=== PATIENT | male | born 1965 | race Two or more races ===

== ENCOUNTER → 2016-09-12 | Outpatient (CLI) | payer BC ==
[2016-09-12 17:52] LABS: ABSOLUTE BASOPHILS # (AUTO) 0.1 10^3/uL (0.0-0.2); ABSOLUTE LYMPHOCYTES (AUTO) 2.2 10^3/uL (0.5-4.7); ABSOLUTE MONOCYTES (AUTO) 0.4 10^3/uL (0.1-1.4); ABSOLUTE NEUT (AUTO) 5.2 10^3/uL (1.7-8.2); BASOPHILS % (AUTO) 0.7 % (0-2); EOSINOPHILS % (AUTO) 0.6 % (0-6); HEMATOCRIT 40.5 % (37.9-51.0); HEMOGLOBIN 13.6 g/dL (13.5-17.0); HGB HCT DIFFERENCE 0.3; LYMPHOCYTES % (AUTO) 27.4 % (13-45); MEAN CORPUSCULAR HEMOGLOBIN 31.9 pg (27.0-33.4); MEAN CORPUSCULAR HGB CONC 33.5 g/dL (32.0-36.0); MEAN CORPUSCULAR VOLUME 95 fl (80-97); MONOCYTES % (AUTO) 5.1 % (3-13); RED BLOOD COUNT 4.25 10^6/uL (4.35-5.55); RED CELL DISTRIBUTION WIDTH 13.1 % (11.5-14.0); SEGMENTED NEUTROPHILS % (AUTO) 66.2 % (42-78); WHITE BLOOD COUNT 7.9 10^3/uL (4.0-10.5)
[2016-09-12 18:33] LABS: PROTHROMBIN TIME 12.9 SEC (11.4-15.4)
[2016-09-12 18:34] LABS: PARTIAL THROMBOPLASTIN TIME 28.6 SEC (23.5-35.8)
[2016-09-12 18:46] LABS: APPEARANCE,URINE CLEAR; BILIRUBIN,URINE NEGATIVE (NEGATIVE); GLUCOSE, URINE NEGATIVE (NEGATIVE); KETONES,URINE NEGATIVE (NEGATIVE); LEUKOCYTE ESTERASE,URINE NEGATIVE (NEGATIVE); NITRITE,URINE NEGATIVE (NEGATIVE); PROTEIN,URINE NEGATIVE (NEGATIVE); URINE SPECIFIC GRAVITY 1.017; UROBILINOGEN,URINE NEGATIVE mg/dL (<2.0)
== END ==
LOC: OD 16:05
PROVIDERS: ATTEND Pain Medicine Interventional Pain Medicine
DX: G89.4 Chronic pain syndrome (principal)
CPT/HCPCS: 36415; 81001; 85025; 85610; 85730

== ENCOUNTER 2016-11-14 05:43 | Day surgery (SDC) | payer BC ==
[2016-11-07 09:36] LABS: HEMATOCRIT 45.1 % (37.9-51.0); HEMOGLOBIN 14.9 g/dL (13.5-17.0); HGB HCT DIFFERENCE -0.4; MEAN CORPUSCULAR HEMOGLOBIN 31.5 pg (27.0-33.4); MEAN CORPUSCULAR VOLUME 95 fl (80-97); RED BLOOD COUNT 4.72 10^6/uL (4.35-5.55); RED CELL DISTRIBUTION WIDTH 13.7 % (11.5-14.0); WHITE BLOOD COUNT 4.7 10^3/uL (4.0-10.5)
[2016-11-07 09:45] LABS: PARTIAL THROMBOPLASTIN TIME 28.1 SEC (23.5-35.8); PROTHROMBIN TIME 12.5 SEC (11.4-15.4)
[2016-11-07 09:46] LABS: AMORPHOUS SEDIMENT,URINE TRACE /HPF; APPEARANCE,URINE CLOUDY; BILIRUBIN,URINE NEGATIVE (NEGATIVE); GLUCOSE, URINE NEGATIVE (NEGATIVE); KETONES,URINE NEGATIVE (NEGATIVE); LEUKOCYTE ESTERASE,URINE NEGATIVE (NEGATIVE); NITRITE,URINE NEGATIVE (NEGATIVE); PROTEIN,URINE NEGATIVE (NEGATIVE); URINE SPECIFIC GRAVITY 1.024; UROBILINOGEN,URINE NEGATIVE mg/dL (<2.0)
--- NOTE | 2016-11-07 10:05 | RADIOLOGY REPORT (SQ) ---
EXAM DESCRIPTION: CHEST PA/LATERAL COMPLETED DATE/TIME: 11/07/2016 9:45 am REASON FOR STUDY: PRE OP COMPARISON: None. EXAM PARAMETERS: NUMBER OF VIEWS: two views TECHNIQUE: Digital Frontal and Lateral radiographic views of the chest acquired. RADIATION DOSE: NA LIMITATIONS: none FINDINGS: LUNGS AND PLEURA: Probable nipple shadow on the left. No opacities, masses or pneumothora x. No pleural effusion. MEDIASTINUM AND HILAR STRUCTURES: No masses or contour abnormalities. HEART AND VASCULAR STRUCTURES: Heart normal size. No evidence for failure. BONES: No acute findings. HARDWARE: None in the chest. OTHER: No other significant finding. IMPRESSION: PROBABLE NIPPLE SHADOW ON THE LEFT. REPEAT STUDY WITH NIPPLE MARKERS RECOMMENDED FOR CO NFIRMATION. OTHERWISE NO SIGNIFICANT RADIOGRAPHIC FINDING IN THE CHEST. TECHNICAL DOCUMENTATION: JOB ID: [id number] [employer]- All Rights Reserved
--- NOTE | 2016-11-07 19:15 | EKG REPORT ---
SEVERITY:- NORMAL ECG - SINUS RHYTHM : Confirmed by: Ap Nelson MD 07-Nov-2016 19:14:07
[~2016-11-14 05:43] MED LIST: CEFAZOLIN 1 GM/D5W RTU 1 GM/50 ML RTUPB IV PRN; LACTATED RINGERS 1000 ML IV PRN; LIDOCAINE 0.5% INJ-PF (5 MG/ML) 50 ML SDV SUBCUT PRN
[2016-11-14] MEDS ORDERED: KETAMINE HCL INJ 500 MG/10 ML VIAL ONE (07:38)
[2016-11-14] MEDS ORDERED: MIDAZOLAM 2 MG/2 ML INJ ONE (07:39)
[2016-11-14] MEDS ORDERED: PROPOFOL INJ 200 MG/20 ML VIAL IV ONE (07:39)
[2016-11-14] MEDS ORDERED: DEXMEDETOMIDINE INJ 80 MCG/20 ML VIAL IV ONE (07:39)
[2016-11-14] MEDS ORDERED: IBUPROFEN INJ 800 MG/8 ML VIAL IV ONE (07:40)
[2016-11-14] MEDS ORDERED: MORPHINE SULFATE 10 MG/ML INJ ONE (07:40)
[2016-11-14] MEDS ORDERED: BUPIVACAINE HCL 0.25% /EPINEPHRINE INJ/PF 30 ML SDV ONE ×2 (07:46→08:39)
[2016-11-14] MEDS ORDERED: SODIUM BICARBONATE 8.4% INJ 50 MEQ/50 ML DISP.SYRIN ONE (07:46)
[2016-11-14] MEDS ORDERED: LIDOCAINE 1% INJ-PF (10 MG/ML) 30 ML SDV ONE ×2 (07:46→08:39)
[2016-11-14] MEDS ORDERED: DIPHENHYDRAMINE HCL 50 MG/ML VIAL IV PRN (09:01)
[2016-11-14] MEDS ORDERED: OXYCODONE-ACETAMINOPHEN 5-325 MG TABLET PO PRN ×4 (09:01→10:10)
[2016-11-14] MEDS ORDERED: PROMETHAZINE HCL INJ 25 MG/1 ML VIAL IV PRN ×2 (09:01)
[2016-11-14] MEDS ORDERED: MEPERIDINE HCL/PF INJ 25 MG/1 ML DISP.SYRIN IV PRN (09:01)
[2016-11-14] MEDS ORDERED: MORPHINE SULFATE 10 MG/ML INJ IV PRN (09:01)
[2016-11-14] MEDS ORDERED: FENTANYL CITRATE INJ/PF 100 MCG/2 ML AMPUL IV PRN ×3 (09:01)
[2016-11-14] MEDS ORDERED: CEFAZOLIN INJ 1 GM VIAL ONE (09:54)
--- NOTE | 2016-11-14 11:24 | OPERATIVE REPORT E ---
Operative Report NAME: JAXSON HANSEN : 1965 AGE: 51Y DATE OF SURGERY: 11/14/2016 ROOM: PRE-PROCEDURAL DIAGNOSES: Lumbar radiculopathy and chronic pain. POSTOPERATIVE DIAGNOSES: Lumbar radiculopathy and chronic pain. PROCEDURES PERFORMED: Implantation of dual Octrode spinal cord stimulator, electrodes, and implantable pulse generator from [employer]. PRIMARY SURGEON: MANDY ANGULO M.D. ASSISTING: Dr. Bernardo Atkinson PERIOPERATIVE ANTIBIOTICS: Ancef 1 g given prior to incision. INTRAVENOUS FLUIDS: One liter of crystalloid solution. ANESTHESIA: MAC with sedation. SPECIMENS REMOVED: None. FINDINGS: Dual Octrode leads from midbody T8 to midbody T10. OPERATIVE INDICATIONS: The patient is a 51-year-old gentleman with longstanding history of chronic low back pain and radiculopathy. The patient had failed multiple conservative therapies. He underwent trial of spinal cord stimulator percutaneous system with excellent results. The patient elected to proceed with permanent implantation. All risks and benefits were discussed with the patient in detail, including but not limited to bleeding, bruising, infection, injury to nerves, arteries, veins, bowel or bladder function, paralysis, and potentially even . The patient expressed understanding and agreed to proceed. OPERATIVE DETAIL: The patient was accompanied by anesthesia staff to the operative suite where he was placed in prone position. All pressure points were checked and padded. Standard ASA lines and monitors were applied. The patient was prepped and draped in sterile fashion using chlorhexidine gluconate solution. A timeout procedure was performed as per hospital standards prior to start of procedure. Temperature patient was draped using universal and Ioban drapes. Also, C-arm was draped sterilely into the field. The planned incision site was marked using fluoroscopic guidance. The skin was anesthetized with 1% buffered lidocaine using a 25 gauge needle. Deeper tissues were then infiltrated with 0.25% bupivacaine with 1:100,000 epinephrine. The same anesthesia was performed over the left buttock where planned incision site for implantable pulse generator was made. Incision was then made in the midline in the back and the buttock using a 15 blade scalpel. Deep and electrocautery dissection were utilized to expose the prevertebral fascia in the midline. Once adequate hemostasis was ensured, a 3.5 inch 25 gauge spinal needle was advanced under intermittent AP fluoroscopic guidance to the L1-2 interspace for numbing and then subsequently a Tuohy needle provided by the [employer] kit was advanced under intermittent AP fluoroscopic guidance to the L1-2 interspace. Access to the epidural space was gained using loss of resistance with normal saline. This was first performed in a left paramedian approach and then immediately an additional needle was placed in a right paramedian approach. The Octrode leads provided by the [employer] kit were easily advanced through the needle and confirmed to be in the posterior epidural space and in the midline on AP and lateral fluoroscopy. The leads were advanced to the top of the T8 vertebral body and then attached to the stimulation device. The patient was awakened at this point and stimulation was confirmed with the [employer] customer retention representative in the room. Once adequate stimulation was obtained, the patient was allowed to be re-anesthetized and 0 [address] was utilized to place a pursestring sutures near both needles and an additional stay suture was placed just distal to that. The anchoring devices were advanced over the leads and deployed after the pursestring sutures were tied once needles were removed using continuous fluoroscopic guidance to ensure no migration of the leads. The anchors were affixed to the pursestring suture and a stay suture. An additional anchor was placed over the right lead given that the initial lead was fairly buried and an additional stay suture was then placed. Strain relief loops were placed in the back. At this point, attention was turned to the left buttock. Blunt and electrocautery dissection was to develop an adequate pocket for the implantable pulse generator. The tunneling tract was anesthetized using 1% buffered lidocaine and then the tunneling device from the [employer] customer retention representative was advanced from the buttock to the midline. The leads were placed through the tunneling device and then were attached to the implantable pulse generator in the buttock site. At this point, the [employer] customer retention representative tested impedances on the field and they were noted to be excellent. Strain relief loops were also placed behind the implantable pulse generator. Both incision sites were copiously irrigated with dilute Betadine solution. Two 3-0 Vicryl sutures were placed to maintain strain relief loops in the midline in the box. Closure ensued with 3-0 Vicryl in interrupted fashion in both incision sites. The midline incision was further closed using zunilda and the buttock incision further closed using Dermabond tape and glue. The incision sites were dressed and the patient was accompanied with anesthesia staff to postanesthesia recovery unit. He will follow up with [facility] in 24 hours for postoperative wound check. There were no complications during the procedure. DICTATING PHYSICIAN: MANDY ANGULO M.D. [id number] PHY#: [id number] ID: [id number] JOB#: [id number] ACCT: [id number] cc:MANDY ANGULO M.D. >
[2016-11-14 11:46] VITALS: BP 103/64
[2016-11-14] MEDS ORDERED: GLYCOPYRROLATE INJ 0.4 MG/2 ML VIAL ONE (14:38)
[2016-11-14] MEDS ORDERED: LIDOCAINE 2% INJ-PF (20 MG/ML) 10 ML AMPUL ONE (14:38)
[2016-11-14] MEDS ORDERED: ONDANSETRON HCL INJ/PF 4 MG/2 ML SDV ONE (14:38)
[2016-11-14] MEDS ORDERED: METOCLOPRAMIDE HCL INJ/PF 10 MG/2 ML SDV ONE (14:38)
--- NOTE | 2016-11-14 15:48 | RADIOLOGY REPORT (SQ) ---
EXAM DESCRIPTION: NO CHG FLUORO; THORACOLUMBAR SPINE AP/LAT COMPLETED DATE/TIME: 11/14/2016 2:50 pm REASON FOR STUDY: SPINAL STIMULATOR PLCMT ASSISTED W/ FLUORO IN OR M54.17 RADICULOPATHY, LUMBOSACRA L REGION COMPARISON: None. FLUOROSCOPY TIME: 4.8 minutes 8 images saved to PACS. TECHNIQUE: Intra-operative images acquired during surgical procedure to evaluate progress. NUMBER OF IMAGES: 8 LIMITATIONS: None. FINDINGS: 8 images of the upper lumbar and lower thoracic spine were obtained during placement of ne ural stimulator leads. On the final images, the tip of the leads are noted in the mid thoracic spine , the exact level of which is unclear due to limited field of view. IMPRESSION: IMAGE(S) OBTAINED DURING PROCEDURE. COMMENT: Quality ID [id number]: Final reports for procedures using fluoroscopy that document radiation exp osure indices, or exposure time and number of fluorographic images (if radiation exposure indices are not available) Please consult full operative report of the attending physician for description of the procedure. TECHNICAL DOCUMENTATION: JOB ID: [id number] [employer]- All Rights Reserved
== END 2016-11-14 11:50 | disposition home or self-care (01) ==
LOC: OROUT 05:43
PROVIDERS: ATTEND Pain Medicine Interventional Pain Medicine
PROC: 00HU3MZ Insertion of Neurostimulator Lead into Spinal Canal, Percutaneous Approach (ICD-10-PCS; 2016-11-14)
PROC: 0JH70MZ Insertion of Stimulator Generator into Back Subcutaneous Tissue and Fascia, Open Approach (ICD-10-PCS; principal; 2016-11-14 08:00)
DX: M54.17 Radiculopathy, lumbosacral region (principal); I10 Essential (primary) hypertension; M19.90 Unspecified osteoarthritis, unspecified site; K21.9 Gastro-esophageal reflux disease without esophagitis; F17.210 Nicotine dependence, cigarettes, uncomplicated; E78.5 Hyperlipidemia, unspecified; Z79.899 Other long term (current) drug therapy; Z79.1 Long term (current) use of non-steroidal anti-inflammatories (NSAID)
CPT/HCPCS: 93005; 36415 ×2; 84132; 85027; 85610; 85730; 81001; 71020; 72080; 93010; 63685; 63650; C1820; C1778; C1787; J2250; J3490 ×6; J0690 ×2; J2765; J2270; J2405; J2704; J1741; 300

== ENCOUNTER → 2017-01-11 | Outpatient (CLI) | payer BC ==
[2017-01-11 13:56] LABS: ABSOLUTE MONOCYTES (AUTO) 0.3 10^3/uL (0.1-1.4); ABSOLUTE NEUT (AUTO) 5.2 10^3/uL (1.7-8.2); BASOPHILS % (AUTO) 0.4 % (0-2); EOSINOPHILS % (AUTO) 0.3 % (0-6); HEMATOCRIT 41.9 % (37.9-51.0); HEMOGLOBIN 14.5 g/dL (13.5-17.0); HGB HCT DIFFERENCE 1.6; MEAN CORPUSCULAR HGB CONC 34.6 g/dL (32.0-36.0); MEAN CORPUSCULAR VOLUME 93 fl (80-97); MONOCYTES % (AUTO) 4.3 % (3-13); RED BLOOD COUNT 4.52 10^6/uL (4.35-5.55); RED CELL DISTRIBUTION WIDTH 13.3 % (11.5-14.0); WHITE BLOOD COUNT 7.6 10^3/uL (4.0-10.5)
[2017-01-11 14:28] LABS: ALANINE AMINOTRANSFERASE 24 U/L (21-72); ALBUMIN 4.7 g/dL (3.5-5.0); ALKALINE PHOSPHATASE 91 U/L (38-126); ANION GAP 13 (5-19); ASPARTATE AMINO TRANSFERASE 16 U/L (17-59); BILIRUBIN,DIRECT 0.4 mg/dL (0.0-0.4); BILIRUBIN,TOTAL 0.8 mg/dL (0.2-1.3); BLOOD UREA NITROGEN 16 mg/dL (7-20); CALCIUM 9.8 mg/dL (8.4-10.2); CARBON DIOXIDE 20 mmol/L (22-30); CHLORIDE 112 mmol/L (98-107); CREATININE RESULT 0.97 mg/dL (0.52-1.25); GLUCOSE 86 mg/dL (75-110); TOTAL PROTEIN 7.2 g/dL (6.3-8.2)
[2017-01-11 14:29] LABS: C-REACTIVE PROTEIN < 5.0 mg/L (<10.0)
[2017-01-11 14:37] LABS: ERYTHROCYTE SEDIMENTATION RATE 9 mm/hr (0-20)
[2017-01-11 14:41] LABS: FREE T3 4.59 pg/mL (2.77-5.27)
[2017-01-11 14:55] LABS: THYROID STIMULATING HORMONE 1.25 uIU/mL (0.47-4.68)
--- NOTE | 2017-01-11 14:55 | RADIOLOGY REPORT (SQ) ---
EXAM DESCRIPTION: C SP 4 OR 5 VIEWS COMPLETED DATE/TIME: 01/11/2017 12:36 pm REASON FOR STUDY: CERVICALGIA M54.2 CERVICALGIA COMPARISON: None. NUMBER OF VIEWS: Five views. TECHNIQUE: AP, lateral, obliques and odontoid radiographic images acquired of the cervical spine. LIMITATIONS: None. FINDINGS: MINERALIZATION: Normal. ALIGNMENT: Anatomic. VERTEBRAE: Vertebral bodies of normal height. DISCS: Very mild disc space loss of height at C5-6 and C6-7 with mild anterior osteophyte formation. Mild bilateral facet arthropathy at C3-4, C4-5. FORAMINA: Very mild bilateral foraminal narrowing at C3-4 and C5-6. No bony central stenosis LATERAL AND POSTERIOR ELEMENTS: Mild bilateral facet arthropathy at C3-4 and C4-5. HARDWARE: None in the spine. SOFT TISSUES: No masses or calcifications. Lung apices clear. OTHER: No other significant finding. IMPRESSION: Mild midcervical degenerative changes as above. No acute fracture or malalignment TECHNICAL DOCUMENTATION: JOB ID: [id number] [facility]- All Rights Reserved
[2017-01-13 14:20] LABS: LYME DISEASE IGG AND IGM AB <0.91 ISR (0.00-0.90)
== END ==
LOC: OD 12:21
PROVIDERS: ATTEND Pain Medicine Interventional Pain Medicine
DX: M79.1 Myalgia (principal); M13.0 Polyarthritis, unspecified; M54.2 Cervicalgia
CPT/HCPCS: 36415; 72050; 80053; 84439; 84443; 84480; 84481; 85025; 85652; 86038; 86140; 86430; 86617; 86618

== ENCOUNTER → 2017-02-11 | Outpatient (CLI) | payer BC ==
--- NOTE | 2017-02-11 16:24 | RADIOLOGY REPORT (SQ) ---
EXAM DESCRIPTION: MRI CERVICAL SPINE WITHOUT COMPLETED DATE/TIME: 02/11/2017 10:46 am REASON FOR STUDY: DISORDER @ C5-C6 LEVEL WITH RADICULOPATHY M54.17 RADICULOPATHY, LUMBOSACRAL REGIO N M50.122 CERVICAL DISC DISORDER AT C5-C6 LEVEL WITH RADICULOP COMPARISON: None. TECHNIQUE: Sagittal and Axial imaging includes T1, T2, STIR and gradient echo sequences. LIMITATIONS: None. FINDINGS: ALIGNMENT: Normal. VERTEBRAE: Intact. BONE MARROW: Normal. No marrow replacement or reactive changes. DISCS: Diffuse decreased T2 weighted intervertebral disc signal. HARDWARE: None in the spine. CORD AND BASE OF BRAIN: Normal in size and signal intensity. SOFT TISSUES: No soft tissue masses. C1-C2: No significant spinal stenosis. C2-C3: No significant spinal stenosis or exit foraminal stenosis. C3-C4: Mild diffuse posterior disc bulging is present without central stenosis. Mild bilateral reddy inal narrowing. C4-C5: No significant spinal stenosis or exit foraminal stenosis. C5-C6: Moderate diffuse posterior disc bulge and bony spurring partly effaces the ventral thecal sac and causes mild central canal stenosis best shown on axial T2 series 7, image 101. There is high-gra de right foraminal narrowing and moderate left foraminal narrowing from facet and uncovertebral hyper trophy C6-C7: Minimal posterior disc bulge without significant central canal narrowing. Mild bilateral fora anita narrowing from facet and uncovertebral hypertrophy. C7-T1: No significant spinal stenosis or exit foraminal stenosis. UPPER THORACIC: Incompletely imaged. No significant spinal stenosis or exit foraminal stenosis. OTHER: No other significant finding. IMPRESSION: Degenerative changes most pronounced at C5-6 TECHNICAL DOCUMENTATION: JOB ID: [id number]- All Rights Reserved
--- NOTE | 2017-02-11 16:30 | RADIOLOGY REPORT (SQ) ---
EXAM DESCRIPTION: MRI LUMBAR SPINE WITHOUT COMPLETED DATE/TIME: 02/11/2017 10:46 am REASON FOR STUDY: RADICULOPATHY M54.17 RADICULOPATHY, LUMBOSACRAL REGION M50.122 CERVICAL DISC DI SORDER AT C5-C6 LEVEL WITH RADICULOP COMPARISON: None. TECHNIQUE: Sagittal and Axial imaging includes T1, T2, STIR and gradient echo sequences. Coronal T2/ HASTE imaging. LIMITATIONS: None. FINDINGS: VISUALIZED UPPER ABDOMEN: Limited evaluation. No acute or suspicious findings suggested. SEGMENTATION: No transitional anatomy. The lowest well-developed disc space is labeled L5-S1. ALIGNMENT: Anatomic. VERTEBRAE: Intact. BONE MARROW: Very mild fatty reactive endplate changes anteriorly at the L1-2 vertebral body endplate s DISC SIGNAL: Decreased T2 weighted intervertebral disc signal with disc space loss of height at L1-2. POSTERIOR ELEMENTS: Generally intact. No pars defect evident. HARDWARE: There is minimal artifact along the dorsal aspect of the distal thoracic canal related to M R compatible for neurostimulator CORD AND CONUS: Normal in size and signal intensity. Conus at the T12-L1 level. SOFT TISSUES: No aortic aneurysm seen. No bulky retroperitoneal adenopathy or mass. No paraspinal mas s or fluid. T11-12: No central or foraminal stenosis T12-L1: No central or foraminal stenosis L1-L2: Disc space loss of height with moderate bilateral facet hypertrophy. No significant central o r foraminal encroachment. L2-L3: No significant spinal stenosis or exit foraminal stenosis. Mild bilateral facet and ligament hypertrophy. L3-L4: No significant spinal stenosis or exit foraminal stenosis. Mild bilateral facet and ligament hypertrophy. L4-L5: Mild posterior disc bulging, mild bilateral facet and ligament hypertrophy. Borderline centra l canal stenosis. Mild bilateral inferior foraminal narrowing without exiting L4 nerve root impingem ent. L5-S1: No significant spinal stenosis or exit foraminal stenosis. SACRUM: Visualized upper sacrum intact. OTHER: No other significant findings. IMPRESSION: Mild degenerative changes as above TECHNICAL DOCUMENTATION: JOB ID: [id number] [employer]- All Rights Reserved
== END ==
LOC: RAD 08:10
PROVIDERS: ATTEND Pain Medicine Interventional Pain Medicine
DX: M54.17 Radiculopathy, lumbosacral region (principal); M50.122 Cervical disc disorder at C5-C6 level with radiculopathy
CPT/HCPCS: 72141; 72148